=== PATIENT | male | born 1935 | race Caucasian/White ===

== ENCOUNTER 2016-06-23 11:04 | Observation (INO) | payer MEDICARE, BC ==
[~2016-06-23] VITALS: Ht 170.2 cm; Wt 90.9 kg
[~2016-06-23 11:04] MED LIST: ASPIRIN 32325 MG/TAB PO; ATIVAN 0.50.5 MG/TAB PO; BREO IH; DIFLUCAN200 MG PO; GARLIC SUPPLEM300 MG; IPRATROPIUM BROM3 M1 IH; LEVAQUIN 750MG750 M1 PO; MUCINEX 60600 MG/TA1 PO; NEB; RT ADVAIR 228 DISKUS IH; RT SPIRIVA18 MCG IH; SINGULAIR PO; SYMBICORT1 AE1 IH; VENTOLIN0.09 MG IH; ZOLOFT50 MG PO
[2016-06-23 11:26] LABS: HEMATOCRIT 39.3 % (42.0-52.0); MEAN CELL VOLUME 91 fl (80.0-100.0); MEAN CORPUSCULAR HGB CONC 29 g/dl (33.0-37.0); RED BLOOD COUNT 4.34 M/mm3 (4.20-5.60); REDCELL DISTRIBUTION WIDTH-CV 21.1 % (11.5-14.5)
[2016-06-23 11:27] LABS: INR 1.3 (0.8-3.0); PROTHROMBIN TIME 14.9 SECONDS (9.7-12.8)
[2016-06-23 11:35] LABS: HEMOGLOBIN 11.5 g/dl (13.5-18.0); MEAN CORPUSCULAR HEMOGLOBIN 26 pg (27.0-31.0)
[2016-06-23 11:49] LABS: ADJUSTED CALCIUM 8.8 mg/dL (8.4-10.2); ALANINE AMINOTRANSFERASE 40 U/L (21-72); ALBUMIN 4.2 gm/dL (3.5-5.0); ALKALINE PHOSPHATASE 41 U/L (50-136); ANION GAP 9 mmol/L (7-16); BILIRUBIN,TOTAL 1.5 mg/dL (0.0-1.0); BLOOD UREA NITROGEN 16 mg/dL (9-20); CARBON DIOXIDE 30 mmol/L (22-30); CHLORIDE 97 mmol/L (98-107); CREATININE, serum 1.04 mg/dL (0.66-1.25); GLUCOSE 136 mg/dL (74-106); POTASSIUM 3.7 mmol/L (3.4-5.0); SODIUM 137 mmol/L (137-145); TOTAL PROTEIN 7.3 gm/dL (6.4-8.2)
[2016-06-23 11:55] LABS: PLATELET COUNT 115 K/mm3 (130-400)
[2016-06-23 11:59] LABS: BASOPHIL 3 % (0-2); MYELOCYTE 1 % (0-0); NEUTROPHILS 67 % (42.0-75.2); TOTAL CELLS COUNTED 100; TROPONIN-I < 0.012 ng/mL (0.000-0.034)
[2016-06-23 12:00] LABS: PLATELET ESTIMATE DECREASED (NORMAL)
[2016-06-23 12:08] LABS: ANISOCYTOSIS 3+; HYPOCHROMIA 1+; MICROCYTOSIS 1+
[2016-06-23 12:10] LABS: ADD PATHOLOGY DIFF REVIEW YES
[2016-06-23 12:12] LABS: PH 6 (5-8); SQUAMOUS EPITHELIAL None Seen /hpf; URINE APPEARANCE Clear; URINE BACTERIA None Seen /hpf; URINE BILIRUBIN Negative (NEGATIVE); URINE BLOOD Negative (NEGATIVE); URINE COLOR Straw; URINE GLUCOSE Negative (NEGATIVE); URINE KETONE Negative (NEGATIVE); URINE RBC None Seen /hpf; URINE UROBILINOGEN Negative (NEGATIVE); URINE WBC None Seen /hpf
[2016-06-23 13:12] VITALS: BP 117/53; PULSE 60; TEMP 98.7
[2016-06-23] MEDS ORDERED: IPRATROPIUM BROM3 M1 IH (13:54)
[2016-06-23] MEDS ORDERED: TUMS500 MG PO (13:56)
[2016-06-23 15:39] VITALS: BP 131/50; PULSE 66; TEMP 98.2
[2016-06-23 19:15] VITALS: BP 146/59; PULSE 66; TEMP 98.1
[2016-06-23 23:47] VITALS: BP 113/51; PULSE 85; TEMP 98.7
[2016-06-24 03:56] VITALS: BP 130/75; PULSE 75; TEMP 97.3
[2016-06-24 07:47] LABS: HEMATOCRIT 38.7 % (42.0-52.0); MEAN CELL VOLUME 92 fl (80.0-100.0); MEAN CORPUSCULAR HGB CONC 29 g/dl (33.0-37.0); PLATELET COUNT 101 K/mm3 (130-400); RED BLOOD COUNT 4.23 M/mm3 (4.20-5.60); REDCELL DISTRIBUTION WIDTH-CV 20.3 % (11.5-14.5); WHITE BLOOD COUNT 11.5 K/mm3 (4.8-10.8)
[2016-06-24 08:07] LABS: HEMOGLOBIN 11.1 g/dl (13.5-18.0); MEAN CORPUSCULAR HEMOGLOBIN 26 pg (27.0-31.0)
[2016-06-24 08:08] LABS: ADD PATHOLOGY DIFF REVIEW NO
[2016-06-24 08:28] VITALS: BP 130/43; PULSE 84; TEMP 97.7
[2016-06-24 08:53] LABS: BAND 3 % (0-10); NEUTROPHILS 87 % (42.0-75.2); TOTAL CELLS COUNTED 100
[2016-06-24] MEDS ORDERED: ZITHROMAX 250M250 MG PO (11:45)
[2016-06-24] MEDS ORDERED: INCRUSE EL62.5 MCG/A IH (11:46)
[2016-06-24] MEDS ORDERED: PREDNISONE20 MG PO (11:47)
[2016-06-24] MEDS ORDERED: ASPIRIN 81M81 MG/TA2 PO (11:47)
[2016-06-26 08:45] LABS: PATHOLOGY DIFF REVIEW OK
== END 2016-06-24 13:28 | disposition home or self-care (01) ==
LOC: COL.ER 11:04 → MEDICAL 12:35
PROVIDERS: Family Medicine; Physician Assistant
DX: J44.1 Chronic obstructive pulmonary disease with (acute) exacerbation (principal); R07.9 Chest pain, unspecified; G47.33 Obstructive sleep apnea (adult) (pediatric); A41.9 Sepsis, unspecified organism; F41.9 Anxiety disorder, unspecified; C95.90 Leukemia, unspecified not having achieved remission; N40.0 Benign prostatic hyperplasia without lower urinary tract symptoms
CPT/HCPCS: G0378; J0456; J1650; J2930; J7030; J7050; J7512

== ENCOUNTER 2016-09-14 11:03 | Inpatient (IN) | payer MEDICARE, BC ==
[~2016-09-14] VITALS: Ht 172.7 cm; Wt 90.3 kg
[~2016-09-14 11:03] MED LIST changes: +ASPIRIN 81M81 MG/TA2 PO; +INCRUSE EL62.5 MCG/A IH; +PREDNISONE20 MG PO; +TUMS500 MG PO; +ZITHROMAX 250M250 MG PO
[2016-09-14] MEDS ORDERED: NATURAL IRON65 MG PO (12:30)
[2016-09-14 12:37] LABS: HEMATOCRIT 38.4 % (42.0-52.0); MEAN CELL VOLUME 87 fl (80.0-100.0); MEAN CORPUSCULAR HGB CONC 31 g/dl (33.0-37.0); PLATELET COUNT 64 K/mm3 (130-400); RED BLOOD COUNT 4.42 M/mm3 (4.20-5.60); REDCELL DISTRIBUTION WIDTH-CV 20.6 % (11.5-14.5)
[2016-09-14 12:40] LABS: ADJUSTED CALCIUM 8.6 mg/dL (8.4-10.2); ALBUMIN 4.4 gm/dL (3.5-5.0); BILIRUBIN,TOTAL 2.8 mg/dL (0.0-1.0); CALCIUM 8.9 mg/dL (8.4-10.2); CREATININE, serum 0.93 mg/dL (0.66-1.25); POTASSIUM 4.3 mmol/L (3.4-5.0); TOTAL PROTEIN 7.3 gm/dL (6.4-8.2)
[2016-09-14 12:41] LABS: HEMOGLOBIN 11.9 g/dl (13.5-18.0); MEAN CORPUSCULAR HEMOGLOBIN 27 pg (27.0-31.0); WHITE BLOOD COUNT 32.1 K/mm3 (4.8-10.8)
[2016-09-14 12:42] LABS: ADD PATHOLOGY DIFF REVIEW NO
[2016-09-14] MEDS ORDERED: VIDAZA100 MG IV (13:13)
[2016-09-14 13:57] LABS: ANISOCYTOSIS 3+; BAND 6 % (0-10); HYPOCHROMIA 1+; NEUTROPHILS 82 % (42.0-75.2); PLATELET ESTIMATE DECREASED (NORMAL); TOTAL CELLS COUNTED 100
[2016-09-14] MEDS ORDERED: PROZAC 20MG20 MG PO (14:15)
[2016-09-14] MEDS ORDERED: MILK OF MA400 MG/52 PO (15:20)
[2016-09-14 17:19] VITALS: BP 121/47; PULSE 73; TEMP 99.2
[2016-09-14 17:57] LABS: ARTERIAL BLD GAS O2 SATURATION 94.6 % (92-100); ARTERIAL BLD GAS TCO2 CT 26.4; ARTERIAL BLOOD GAS BASE EXCESS 1.3 (-2-2); ARTERIAL BLOOD GAS HCO3 25.3 meq/L (22-26); ARTERIAL BLOOD GAS PO2 77.1 mmHg (80-100); ARTERIAL BLOOD GAS pH 7.44 (7.35-7.45); OXYHEMOGLOBIN 92.1 %
[2016-09-14 18:01] LABS: ATS? YES
[2016-09-14 19:53] VITALS: BP 113/69; PULSE 71; TEMP 97.6
[2016-09-14 23:33] VITALS: BP 111/61; PULSE 63; TEMP 98.5
[2016-09-15 04:42] VITALS: BP 118/55; PULSE 61; TEMP 97.7
[2016-09-15 07:07] LABS: HEMATOCRIT 38.3 % (42.0-52.0); MEAN CELL VOLUME 87 fl (80.0-100.0); MEAN CORPUSCULAR HGB CONC 30 g/dl (33.0-37.0); PLATELET COUNT 77 K/mm3 (130-400); RED BLOOD COUNT 4.41 M/mm3 (4.20-5.60); REDCELL DISTRIBUTION WIDTH-CV 20.9 % (11.5-14.5)
[2016-09-15 07:13] LABS: ADD PATHOLOGY DIFF REVIEW NO; HEMOGLOBIN 11.6 g/dl (13.5-18.0); MEAN CORPUSCULAR HEMOGLOBIN 26 pg (27.0-31.0); WHITE BLOOD COUNT 23.4 K/mm3 (4.8-10.8)
[2016-09-15 07:25] VITALS: BP 144/49; PULSE 75; TEMP 98.4
[2016-09-15 08:09] LABS: ANISOCYTOSIS 2+; BAND 5 % (0-10); HYPOCHROMIA 1+; NEUTROPHILS 79 % (42.0-75.2); PLATELET ESTIMATE DECREASED (NORMAL); TOTAL CELLS COUNTED 100
[2016-09-15 12:10] VITALS: BP 120/58; PULSE 72; TEMP 97.6
[2016-09-15 16:02] VITALS: BP 104/46; PULSE 84; TEMP 98.9
[2016-09-15 20:27] VITALS: BP 151/45; PULSE 79; TEMP 98.6
[2016-09-15 23:38] VITALS: BP 119/43; PULSE 70; TEMP 98.2
[2016-09-16 02:59] VITALS: BP 118/66; PULSE 66; TEMP 98.1
[2016-09-16 07:51] LABS: HEMATOCRIT 38.2 % (42.0-52.0); MEAN CELL VOLUME 86 fl (80.0-100.0); MEAN CORPUSCULAR HGB CONC 31 g/dl (33.0-37.0); PLATELET COUNT 100 K/mm3 (130-400); RED BLOOD COUNT 4.42 M/mm3 (4.20-5.60); REDCELL DISTRIBUTION WIDTH-CV 21.1 % (11.5-14.5); WHITE BLOOD COUNT 19.1 K/mm3 (4.8-10.8)
[2016-09-16 08:12] LABS: HEMOGLOBIN 11.7 g/dl (13.5-18.0); MEAN CORPUSCULAR HEMOGLOBIN 26 pg (27.0-31.0)
[2016-09-16 08:13] LABS: ADD PATHOLOGY DIFF REVIEW NO
[2016-09-16 08:15] LABS: CALCIUM 8.7 mg/dL (8.4-10.2); CREATININE, serum 1.03 mg/dL (0.66-1.25); POTASSIUM 3.8 mmol/L (3.4-5.0)
[2016-09-16 08:25] VITALS: BP 123/51; PULSE 81; TEMP 98
[2016-09-16 11:07] LABS: BAND 6 % (0-10); NEUTROPHILS 69 % (42.0-75.2); TOTAL CELLS COUNTED 100
[2016-09-16 11:08] LABS: ANISOCYTOSIS 3+; HYPOCHROMIA 1+; PLATELET ESTIMATE DECREASED (NORMAL)
[2016-09-16 11:24] VITALS: BP 124/61; PULSE 82; TEMP 98.1
[2016-09-16 15:19] VITALS: BP 134/57; PULSE 87; TEMP 98.3
[2016-09-16] MEDS ORDERED: LEVAQUIN 750MG750 M1 PO (15:38)
[2016-09-16] MEDS ORDERED: LASIX 20MG TABL20 MG PO (15:40)
[2016-09-16] MEDS ORDERED: K-DUR 10 MEQ T10 MEQ PO (15:41)
== END 2016-09-16 16:00 | disposition home or self-care (01) | DRG 189 ==
LOC: COL.ER 11:03 → MEDICAL 13:56 → EDBEDREQ 14:24 → MEDICAL 09-15 14:30
PROVIDERS: Emergency Medicine; Internal Medicine
DX: J81.0 Acute pulmonary edema (principal); J96.11 Chronic respiratory failure with hypoxia; C93.10 Chronic myelomonocytic leukemia not having achieved remission; J44.9 Chronic obstructive pulmonary disease, unspecified; I27.2 Other secondary pulmonary hypertension
CPT/HCPCS: 99223-AI; 99233-AI; 99239; G0378; J0692; J1650; J1940; J3370; J7050; J7512

== ENCOUNTER 2020-11-01 11:25 | Emergency (ER) | payer MEDICARE, BC ==
[~2020-11-01] VITALS: Ht 170.2 cm; Wt 66.4 kg
[~2020-11-01 11:25] MED LIST changes: +K-DUR 10 MEQ T10 MEQ PO; +LASIX 20MG TABL20 MG PO; +MILK OF MA400 MG/52 PO; +NATURAL IRON65 MG PO; +PROZAC 20MG20 MG PO; +VIDAZA100 MG IV
[2020-11-01 11:34] VITALS: TEMP 97.7
[2020-11-01 12:14] LABS: HEMATOCRIT 41.6 % (42.0-52.0); HEMOGLOBIN 12.6 g/dl (13.5-18.0); MEAN CELL VOLUME 84 fl (80.0-100.0); MEAN CORPUSCULAR HEMOGLOBIN 25 pg (27.0-31.0); MEAN CORPUSCULAR HGB CONC 30 g/dl (33.0-37.0); PLATELET COUNT 72 K/mm3 (130-400); RED BLOOD COUNT 4.98 M/mm3 (4.20-5.60)
[2020-11-01 12:21] LABS: ALBUMIN 4.4 gm/dL (3.5-5.0); BILIRUBIN,TOTAL 2.3 mg/dL (0.0-1.0); CALCIUM 9.3 mg/dL (8.4-10.2); CREATININE, serum 0.89 (0.66-1.25); POTASSIUM 3.9 mmol/L (3.4-5.0); TOTAL PROTEIN 8.2 gm/dL (6.4-8.2)
[2020-11-01 12:38] LABS: ANISOCYTOSIS 4+; HYPOCHROMIA 3+; LYMPHOCYTE 6 % (20.0-51.0); NEUTROPHILS 75 % (42.0-75.2); PLATELET ESTIMATE NORMAL (NORMAL)
[2020-11-01 13:43] LABS: COLLECTION METHOD CLEAN CATCH
[2020-11-01 13:50] LABS: MUCOUS Present /lpf; PH 6 (5-8); SQUAMOUS EPITHELIAL 0-2 /hpf; URINE APPEARANCE Hazy; URINE BACTERIA None Seen /hpf; URINE BILIRUBIN Negative (NEGATIVE); URINE BLOOD 1+ (NEGATIVE); URINE COLOR Yellow; URINE GLUCOSE Negative (NEGATIVE); URINE KETONE Negative (NEGATIVE); URINE LEUKOCYTE ESTERASE 3+ (NEGATIVE); URINE NITRATE Negative (NEGATIVE); URINE PROTEIN(semi-quant) 2+ (NEGATIVE); URINE UROBILINOGEN >=4.0 mg/dL (NEGATIVE)
[2020-11-01] MEDS ORDERED: CIPRO 500MG TA500 MG PO (15:15)
[2020-11-01 15:22] VITALS: BP 116/65; PULSE 75
[2020-11-02] MEDS ORDERED: OMNICEF 300MG300 MG PO (16:49)
[2021-03-07] MEDS ORDERED: PRIL40 PO (13:51)
[2021-03-07] MEDS ORDERED: SODIUM CHLORIDE4 M1 IH (17:01)
[2021-03-10] MEDS ORDERED: CLEOCIN HCL300 MG PO (11:26)
[2021-03-10] MEDS ORDERED: PREDNISONE20 MG PO (11:28)
== END 2020-11-01 15:35 | disposition home or self-care (01) ==
LOC: COL.ER 11:25
PROVIDERS: Physician Assistant
DX: N39.0 Urinary tract infection, site not specified (principal); J44.9 Chronic obstructive pulmonary disease, unspecified; I10 Essential (primary) hypertension; Z85.6 Personal history of leukemia; Z87.891 Personal history of nicotine dependence; Z88.0 Allergy status to penicillin; Z79.899 Other long term (current) drug therapy
CPT/HCPCS: J2185; J2405; J3370; J7030; J7050; Q9967

== ENCOUNTER 2020-11-10 08:38 | Day surgery (SDC) | payer MEDICARE, BC ==
[~2020-11-10] VITALS: Ht 170.2 cm; Wt 72.6 kg
[~2020-11-10 08:38] MED LIST changes: +CIPRO 500MG TA500 MG PO; +OMNICEF 300MG300 MG PO
[2020-11-10 09:43] VITALS: BP 152/54; PULSE 65; TEMP 97.3
[2020-11-10 09:50] LABS: HEMATOCRIT 40.1 % (42.0-52.0); HEMOGLOBIN 12.2 g/dl (13.5-18.0); MEAN CELL VOLUME 83 fl (80.0-100.0); MEAN CORPUSCULAR HEMOGLOBIN 25 pg (27.0-31.0); MEAN CORPUSCULAR HGB CONC 30 g/dl (33.0-37.0); PLATELET COUNT 184 K/mm3 (130-400); RED BLOOD COUNT 4.84 M/mm3 (4.20-5.60); REDCELL DISTRIBUTION WIDTH-CV 21.4 % (11.5-14.5)
[2020-11-10] MEDS ORDERED: FLOMAX 0.40.4 MG/CAP PO (09:51)
[2020-11-10] MEDS ORDERED: THEO-DUR 3300 MG/TAB PO (09:51)
[2020-11-10 10:36] LABS: BAND 3 % (0-10); LYMPHOCYTE 17 % (20.0-51.0); NEUTROPHILS 63 % (42.0-75.2)
[2020-11-10 10:39] LABS: PLATELET ESTIMATE NORMAL (NORMAL)
[2020-11-10] MEDS ORDERED: NORCO 325 MG-51 TAB PO (11:32)
[2020-11-10 11:34] VITALS: BP 133/58; PULSE 59; TEMP 97.1
--- NOTE | 2020-11-10 11:34 | NUR ---
PATIENT BROUGHT BACK TO [facility] VIA CART. PLACED ON MONITORS, STABLE. REPORT RECIEVED FROM ADRIAN CLAMP FORKLIFT OPERATOR AND PASSENGER AGENT. ALL QUESTIONS ANSWERED. DENIES PAIN OR NAUSEA. REQUESTS WATER AND TOAST. AT BEDSIDE. BANDAGE TO LEFT CHEST CDI. CALL LEON WITHIN REACH, WILL MONITOR.
[2020-11-10 11:45] VITALS: BP 129/51; PULSE 70
--- NOTE | 2020-11-10 11:45 | NUR ---
PATIENT TOLERATING FOOD AND DRINK WITHOUT DIFFICULTY. STATES HE FEELS GOOD. ALL SAFETY MAINTAINED.
[2020-11-10 12:00] VITALS: BP 128/53; PULSE 60
--- NOTE | 2020-11-10 12:00 | NUR ---
PATIENT STATES HE FEELS READY TO GO HOME AT THIS TIME. DENIES ANY PAIN OR DISCOMFORT. STATES HE WOULD LIKE FIRST DOSE OF PAIN MEDICATION NOW BEFORE THEY ARE ABLE TO GET TO PHARMACY. IV REMOVED, INTACT. PATIENT TO GET DRESSED AT THIS TIME.
--- NOTE | 2020-11-10 12:25 | NUR ---
DISCHARGE INSTRUCTIONS REVIEWED WITH PATIENT AND FAMILY. ALL QUESTIONS ANSWERED. POWER PORT INFORMATION GIVEN TO PATIENT. BROUGHT DOWN TO LOBBY VIA WHEEL CHAIR. TO BE DRIVEN HOME BY .
[2021-03-07] MEDS ORDERED: PRIL40 PO (13:51)
[2021-03-07] MEDS ORDERED: SODIUM CHLORIDE4 M1 IH (17:01)
[2021-03-10] MEDS ORDERED: CLEOCIN HCL300 MG PO (11:26)
[2021-03-10] MEDS ORDERED: PREDNISONE20 MG PO (11:28)
== END 2020-11-10 12:25 | disposition home or self-care (01) ==
LOC: SDCO 08:38
PROVIDERS: Surgery
DX: C93.10 Chronic myelomonocytic leukemia not having achieved remission (principal); I87.8 Other specified disorders of veins; J44.9 Chronic obstructive pulmonary disease, unspecified; G47.33 Obstructive sleep apnea (adult) (pediatric); K21.9 Gastro-esophageal reflux disease without esophagitis; I27.20 Pulmonary hypertension, unspecified; N40.0 Benign prostatic hyperplasia without lower urinary tract symptoms; F41.9 Anxiety disorder, unspecified; F17.210 Nicotine dependence, cigarettes, uncomplicated; Z20.822 Contact with and (suspected) exposure to COVID-19; Z79.899 Other long term (current) drug therapy; Z79.82 Long term (current) use of aspirin
CPT/HCPCS: C1788; J1644; J1956; J2704; J3010; J7120

== ENCOUNTER 2021-04-17 14:26 | Inpatient (IN) | payer MEDICARE, BC ==
[~2021-04-17] VITALS: Ht 170.1 cm; Wt 72.7 kg
[~2021-04-17 14:26] MED LIST changes: +CLEOCIN HCL300 MG PO; +FLOMAX 0.40.4 MG/CAP PO; +NORCO 325 MG-51 TAB PO; +PRIL40 PO; +SODIUM CHLORIDE4 M1 IH; +THEO-DUR 3300 MG/TAB PO
[2021-04-17 15:41] LABS: MEAN CELL VOLUME 91 fl (80.0-100.0); MEAN CORPUSCULAR HGB CONC 28 g/dl (33.0-37.0); PLATELET COUNT 53 K/mm3 (130-400); RED BLOOD COUNT 3.67 M/mm3 (4.20-5.60); REDCELL DISTRIBUTION WIDTH-CV 25.9 % (11.5-14.5)
[2021-04-17 15:47] LABS: INR 1.5 (0.8-3.0); PROTHROMBIN TIME 16.2 SECONDS (9.7-12.8)
[2021-04-17 15:53] LABS: HEMATOCRIT 33.3 % (42.0-52.0); HEMOGLOBIN 9.2 g/dl (13.5-18.0); MEAN CORPUSCULAR HEMOGLOBIN 25 pg (27.0-31.0)
[2021-04-17 16:08] LABS: ALANINE AMINOTRANSFERASE 23 U/L (0-55); ALBUMIN 3.8 gm/dL (3.4-4.8); ALKALINE PHOSPHATASE 80 U/L (40-150); ANION GAP 9 mmol/L (7-16); AST,SGOT 22 U/L (5-34); BILIRUBIN,TOTAL 1.4 mg/dL (0.2-1.2); BLOOD UREA NITROGEN 17 mg/dL (8-26); CALCIUM 8.3 mg/dL (8.4-10.2); CARBON DIOXIDE 27 mmol/L (23-31); CHLORIDE 104 mmol/L (98-107); CREATININE, serum 1.19 mg/dL (0.72-1.25); GLUCOSE 94 mg/dL (70-99); POTASSIUM 4.7 mmol/L (3.5-4.5); SODIUM 140 mmol/L (136-145); TOTAL PROTEIN 6.7 gm/dL (6.2-8.1)
[2021-04-17 16:15] LABS: TROPONIN-I < 0.010 ng/mL (0.00-0.033)
[2021-04-17 17:35] LABS: LYMPHOCYTE 12 % (20.0-51.0); NEUTROPHILS 80 % (42.0-75.2)
[2021-04-17 17:36] LABS: ANISOCYTOSIS 3+; PLATELET ESTIMATE DECREASED (NORMAL)
[2021-04-17 19:47] VITALS: BP 122/108; PULSE 58; TEMP 97.2
--- NOTE | 2021-04-17 20:29 | NUR ---
SPOKE WITH PT ABOUT USING CPAP WHILE SLEEPING; PT STATES HE WILL NOT WEAR A CPAP BECAUSE IT CAUSE FACIAL SWELLING.
--- NOTE | 2021-04-17 21:02 | NUR ---
Vancomycin Initial Dosing Pharmacy Note Ordering provider: Marcell Wong MD Indication/duration: CAP X 7 days Relevant comorbidities: COPD, Chronic respiratory failure LABS: WBC = 17.5, SCr = 1.19, O2 = 6L baseline 2L Recommendation: Will draw troughs and follow levels. Loading dose: 1.5 grams Maintenance dose: 1.5 grams every 24 hours Trough goal: 15-20 ug/mL
[2021-04-17 22:10] VITALS: BP 111/42; PULSE 60; TEMP 98.2
[2021-04-17 23:21] VITALS: BP 127/97; PULSE 49; TEMP 97.5
[2021-04-18 05:24] VITALS: BP 115/45; PULSE 55; TEMP 98
[2021-04-18 07:00] LABS: MEAN CELL VOLUME 90 fl (80.0-100.0); MEAN CORPUSCULAR HGB CONC 28 g/dl (33.0-37.0); RED BLOOD COUNT 3.82 M/mm3 (4.20-5.60); REDCELL DISTRIBUTION WIDTH-CV 25.3 % (11.5-14.5)
[2021-04-18 07:06] LABS: CALCIUM 8.5 mg/dL (8.4-10.2); CREATININE, serum 1.07 mg/dL (0.72-1.25); MAGNESIUM 1.8 mg/dL (1.6-2.6); POTASSIUM 4.3 mmol/L (3.5-4.5)
[2021-04-18 07:13] LABS: HEMATOCRIT 34.5 % (42.0-52.0); HEMOGLOBIN 9.7 g/dl (13.5-18.0); MEAN CORPUSCULAR HEMOGLOBIN 25 pg (27.0-31.0); PLATELET COUNT 47 K/mm3 (130-400)
--- NOTE | 2021-04-18 07:28 | NUR ---
CRITICAL PLATLET CALLED TO BAUDILIO DOVER.
[2021-04-18 08:11] VITALS: BP 124/57; PULSE 54; TEMP 97.2
[2021-04-18 08:40] LABS: ANISOCYTOSIS 2+; BAND 5 % (0-10); EOSINOPHIL 1 % (0-4); LYMPHOCYTE 5 % (20.0-51.0); METAMYELOCYTE 1 % (0-0); MICROCYTOSIS 1+; MYELOCYTE 1 % (0-0); NEUTROPHILS 85 % (42.0-75.2); NUCLEATED RED BLOOD CELL 1 (0-6)
[2021-04-18 08:41] LABS: PLATELET ESTIMATE DECREASED (NORMAL); SCHISTOCYTES 1+
--- NOTE | 2021-04-18 11:04 | NUR ---
Initial visit; Patient thanked Dairy Feed Sales Consultant for looking in on him and offering God's blessings. Patient and Dairy Feed Sales Consultant had a nice visit about his home and family who are a great support to him.
[2021-04-18 11:45] VITALS: BP 102/84; PULSE 62; TEMP 98.1
--- NOTE | 2021-04-18 13:58 | NUR ---
equipment worker met with patient to discuss discharge plan. Patient lives at home with his Letty ([phone]) in [place]. Patient reports that he is independent with his activities of daily living and does not utilize any medical equipment to assist with mobility. Patient is currently on 1-3L of oxygen at home that he believes is managed through [facility]. PCP is Dr. Daniels and he utilizes [facility] for perscriptions with no cost difficulty. Patient reports that he has a DPOA-HC estbalished and that his agent is his son Sin who lives in [place]. Patient's Letty would like to have PT/OT set up through [facility] in [place] due to her already going down there twice a week for PT. Collaborated with therapy team on HH vs. OP PT Discharge plan: Home with spouse. Would like OP PT set up through [facility]
[2021-04-18 15:57] VITALS: BP 115/47; PULSE 70; TEMP 96.7
--- NOTE | 2021-04-18 18:00 | NUR ---
Scheduled medications given. Shift assessment performed. Patient denies any pain, discomfort, or SOA. Currently requiring 3L of O2. Denies any further needs at this time. Call light in reach. VSS. Patient A&O.
--- NOTE | 2021-04-18 19:06 | NUR ---
Patient sitting up in the chair and watching TV at shift change. On 3L oxygen via NC. No acute respiratory distress noted. Patient finished eating dinner at this time. Ate 70% of dinner. Call light in reach. Will continue to monitor.
[2021-04-18 19:13] VITALS: BP 101/46; PULSE 62; TEMP 98
[2021-04-19] VITALS (8 sets, daily range): BP systolic 112–136; BP diastolic 48–72; PULSE 56–64; TEMP 95–98.4
--- NOTE | 2021-04-19 06:26 | NUR ---
Patient remains NPO from midnight for scheduled Dobutamine dual isotope stress test this AM. Patient sitting up in chair at this time. No acute distress noted. Call light in reach.
[2021-04-19 06:49] LABS: MEAN CORPUSCULAR HGB CONC 29 g/dl (33.0-37.0); RED BLOOD COUNT 3.92 M/mm3 (4.20-5.60); REDCELL DISTRIBUTION WIDTH-CV 24.8 % (11.5-14.5)
[2021-04-19 06:50] LABS: HEMATOCRIT 33.3 % (42.0-52.0); HEMOGLOBIN 9.8 g/dl (13.5-18.0); MEAN CELL VOLUME 85 fl (80.0-100.0); MEAN CORPUSCULAR HEMOGLOBIN 25 pg (27.0-31.0)
[2021-04-19 06:53] LABS: PLATELET COUNT 32 K/mm3 (130-400)
[2021-04-19 07:03] LABS: CALCIUM 9.7 mg/dL (8.4-10.2); CREATININE, serum 0.99 mg/dL (0.72-1.25); POTASSIUM 3.6 mmol/L (3.5-4.5)
--- NOTE | 2021-04-19 07:11 | NUR ---
CRITICAL WBC AND PLT CALLED TO BAUDILIO JACKSON.
[2021-04-19 08:09] LABS: BAND 2 % (0-10); LYMPHOCYTE 7 % (20.0-51.0); NEUTROPHILS 84 % (42.0-75.2)
[2021-04-19 08:10] LABS: MICROCYTOSIS 2+; PLATELET ESTIMATE DECREASED (NORMAL)
[2021-04-19 08:11] LABS: ANISOCYTOSIS 3+
--- NOTE | 2021-04-19 08:18 | NUR ---
PATIENT TAKEN DOWN FOR STRESS TEST.
--- NOTE | 2021-04-19 08:22 | NUR ---
Shift assessment performed. Medications to be given after stress test. Patient currently requiring 2L of O2. Denies any pain, discomfort, or further needs at this time. Call light in reach. VSS. Patient A&O.
[2021-04-19] MEDS ORDERED: CEFTIN500 MG PO (10:22)
[2021-04-19] MEDS ORDERED: LASIX 20MG TABL20 MG PO (10:29)
[2021-04-19] MEDS ORDERED: DOXYCYCLINE 10100 MG PO (10:31)
[2021-04-19] MEDS ORDERED: PREDNISONE20 MG PO (10:34)
--- NOTE | 2021-04-19 10:53 | NUR ---
Patient back from stress test. Scheduled medications given. No complaints at this time.
--- NOTE | 2021-04-19 12:23 | NUR ---
0841 10 mcg 61, 136/72, 97% 20 resp 0842 64, 127/72, 97% 20 0844 20 mcg 64, 139/78, 97% 15 resp 0847 30 mcg 127, 120/70, 98% 24 resp 0850 124, 151/72, 98%, 24 resp 0852 40 mcg 95, 157/70, 97% 22 0854 81, 148/80, 96% 20 0856 81, 127/76, 96% 20 0857 76, 144/73, 96% 20 0859 74, 139/69, 96% 20 resp 0901 74, 134/67, 96% 20 0903 68, 135/71, 96% 20 resp during the whole procedure pt had a headache and chest pressure.
--- NOTE | 2021-04-19 14:25 | NUR ---
Patient deemed fit for discharge. Khai cath DC'd. No signs of complications noted. Discharge education/instructions given. All questions answered. VSS. Patient A&O. Patient denies any pain, discomfort, SOA, or further needs at this time. Currently requiring 2 L of O2. Patient escorted from building via wheelchair by [facility] Staff. transporting home.
== END 2021-04-19 14:20 | disposition home or self-care (01) | DRG 189 ==
LOC: COL.ER 14:26 → MEDICAL 16:01
PROVIDERS: Emergency Medicine; Physician Assistant; ADMIT Internal Medicine
DX: J96.21 Acute and chronic respiratory failure with hypoxia (principal); J18.9 Pneumonia, unspecified organism; C93.10 Chronic myelomonocytic leukemia not having achieved remission; G47.33 Obstructive sleep apnea (adult) (pediatric); F41.9 Anxiety disorder, unspecified; N40.0 Benign prostatic hyperplasia without lower urinary tract symptoms; D64.9 Anemia, unspecified; D69.6 Thrombocytopenia, unspecified; I27.20 Pulmonary hypertension, unspecified; G72.9 Myopathy, unspecified; Z87.891 Personal history of nicotine dependence; Z91.19 Patient's noncompliance with other medical treatment and regimen; D72.829 Elevated white blood cell count, unspecified; T38.0X5A Adverse effect of glucocorticoids and synthetic analogues, initial encounter; J43.9 Emphysema, unspecified; Z20.822 Contact with and (suspected) exposure to COVID-19
CPT/HCPCS: 99223-AI; 99233-AI; 99239; A9500; J0692; J1250; J1644; J1956; J2930; J3370; J7050; J7512